=== PATIENT | male | born 1980 | race Caucasian/White ===

== ENCOUNTER 2020-11-28 20:21 | Emergency (ER) | payer SELFPAY ==
[2020-11-28 20:22] VITALS: BP 138/90; PULSE 65; RESP 28; TEMP 36.8; O2SAT 97; BMI 26.9
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
[2020-11-28 20:30] VITALS: BP 113/74; PULSE 50; RESP 21; O2SAT 100
[2020-11-28 20:38] LABS: Basophils # 0.1 K/mm3 (0-0.2); Basophils % 0.9 % (0.1-2.0); Eosinophils # 0.3 K/mm3 (0.0-0.4); Eosinophils % 2.6 % (0.1-12.0); Hematocrit 48.4 % (42.0-52.0); Hemoglobin 15.8 g/dL (14.1-18.0); Lymphocytes % 28.5 % (10-50); Mean Corpuscular HGB Conc 32.7 g/dL (31.8-35.4); Mean Corpuscular Hemoglobin 29.8 pg (27.0-31.2); Mean Corpuscular Volume 91.1 fl (80-94); Mean Platelet Volume 7.2 fl (7.4-10.4); Monocytes # 0.6 K/mm3 (0.1-1.0); Monocytes % 5.5 % (1.7-9.3); Neutrophils # 6.6 K/mm3 (1.8-7.8); Neutrophils % 62.5 % (37.0-80.0); Platelet Count 370 K/mm3 (142-424); Red Blood Count 5.31 M/mm3 (4.60-6.20); Red Cell Distribution Width 13.2 % (11.5-17.5); White Blood Count 10.5 K/mm3 (4.8-10.8)
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
[2020-11-28 20:45] VITALS: BP 146/86; PULSE 76; RESP 28; O2SAT 100
[2020-11-28 20:45] LABS: Chloride 103 mmol/L (98-107); Sodium 138 mmol/L (136-145)
[2020-11-28 20:46] LABS: Potassium 3.9 mmoL/L (3.5-5.1)
[2020-11-28 20:48] LABS: Alanine Aminotransferase 22 U/L (12-78); Albumin Level 4.8 g/dl (3.5-5.0); Albumin/Globulin Ratio 1.7 (1.1-1.8); Alkaline Phosphatase 90 U/L (38-126); Anion Gap 10.9 mEq/L (5-15); Aspartate Amino Transferase 38 U/L (17-59); Bilirubin,Total 0.8 mg/dl (0.2-1.3); Blood Urea Nitrogen 12 mg/dl (9-20); Carbon Dioxide 28 mmol/L (22.0-30.0); Creatinine Clearance Estimated 147 mL/min (50-200); Estimated Glomerular Filt Rate 93 ml/min (>60); GFR (African American) 113 ML/MIN (>60); Globulin 2.9 g/dL (1.3-3.2); Total Protein,Serum 7.7 g/dl (6.3-8.2)
[2020-11-28 20:49] LABS: Calcium 9.4 mg/dl (8.4-10.2); Glucose 112 mg/dl (74-100)
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
[2020-11-28 20:52] LABS: Activated Partial Thrombo Time 24.3 seconds (22.8-30.6)
[2020-11-28 21:00] VITALS: BP 174/116; PULSE 85; RESP 23; O2SAT 99
--- NOTE | 2020-11-28 21:01 | PC.NURSE ---
Pt A&Ox4 on arrival and helped from POV via staff. C collar applied on arrival to Trauma room 2. Pt undressed and inspected front and back. Doran inserted w/ clear yellow urine. 100% non-rebreather applied. MD Catrachito called for insertion of chest tube. 32fr chest tube to left chest wall and connected to plurevac. 18g IV in bilateral ac's, blood drawn and sent to lab. Pt given 2L NS and 50mcg fentanyl while in ED.
--- NOTE | 2020-11-28 21:03 | HMH.PROC ---
[facility] Procedure Note Procedure Note:: Procedure: Left thoracostomy tube (32 B[place]) Indication: Traumatic left pneumothorax Prep: Betadine Anesthesia: 1% lidocaine Description: Verbal consent was obtained. The procedure was considered an emergency and formal/written consent was not obtained. The patient was maintained in a supine position. His left chest was prepped and draped with Betadine. After infiltration local anesthetic an incision was made along the anterior axillary line (seventh interspace). The underlying tissue was tunneled in a cephalad direction up and over the rib margin. A 32 B[place]udian thoracostomy tube was secured at 17 cm with 0 silk suture. The tube was secured to the Pleur-evac. Dressings were applied. The patient tolerated the procedure with moderate discomfort. Estimated blood loss: 1 mL Complications: no immediate
[2020-11-28 21:12] LABS: Microscopic, Urine URINE MICROSCOPIC (MICROSCOPIC)
[2020-11-28 21:13] LABS: Appearance,Urine CLEAR (Clear); Bilirubin,Urine Negative (Negative); Blood, Urine TRACE-I (Negative); Color,Urine YELLOW (Yellow); Glucose,Urine (UA) Negative (Negative); Ketones,Urine Negative (Negative); Leukocyte Esterase,Urine Negative (Negative); Nitrate,Urine Negative (Negative); Protein,Urine TRACE (Negative); Urobilinogen,Urine 0.2 EU/dl (0.2)
[2020-11-28 21:15] VITALS: BP 159/104; PULSE 81; RESP 20; O2SAT 98
[2020-11-28 21:20] VITALS: BP 164/98; PULSE 82; RESP 22; TEMP 36.8; O2SAT 100
--- NOTE | 2020-11-28 21:20 | PC.NURSE ---
2120- Pt transferred to [facility] for air transport to . Pt stable on d/c.
[2020-11-28 21:23] LABS: Bacteria,Urine 2+ /lpf; Mucus,Urine 3+ /lpf
[2021-01-20 11:25] LABS: POC Glucose,Bedside 85 (70-110)
== END 2020-11-28 21:20 | disposition short-term general hospital (02) ==
PROVIDERS: Emergency Provider Emergency Medicine
DX: J93.9 Pneumothorax, unspecified (principal); S29.8XXA Other specified injuries of thorax, initial encounter; S39.91XA Unspecified injury of abdomen, initial encounter; V28.0XXA Motorcycle driver injured in noncollision transport accident in nontraffic accident, initial encounter; Y92.488 Other paved roadways as the place of occurrence of the external cause
CPT/HCPCS: 32551; 71045; 72170; 80053; 81001; 82962; 85025; 85730; 87086; 96365; 96375; 99284

== ENCOUNTER 2021-08-26 08:17 | Emergency (ER) | payer OTHER, SELFPAY ==
--- NOTE | 2021-08-26 08:17 | ECG_ITS ---
APPROVED REPORT Exam: Resting ECG HR:85 bpm ECG Measurements Heart Rate 85 AXES VA 140 P 42 QRSd 98 QRS 96 QT 368 T 70 QTc 437 Conclusion Normal sinus rhythm Rightward axis Borderline ECG Electronically signed by : Davin Galo MD 08/26/2021 19:54:26
[2021-08-26 08:19] VITALS: BMI 29.8
--- NOTE | 2021-08-26 08:19 | HMH.EDGENADL ---
ED Disposition Clinical Impression: Pancreatitis Qualifiers: Chronicity: acute Pancreatitis type: unspecified pancreatitis type Acute pancreatitis complication: no infection or necrosis Qualified Code(s): K85.90 - Acute pancreatitis without necrosis or infection, unspecified Disposition: Home, Self-Care Condition on Discharge: Good Instructions: DI for Pancreatitis Additional Instructions: Clear liquids only, no solid food, for 24 hours. Return to the emergency department if worsening symptoms. Follow-up with your primary care provider, call to make appointment. Your gallbladder was contracted/thickened on CAT scan and ultrasound in the emergency department. Follow-up with your primary care doctor for further evaluation of your gallbladder. Referrals: Provider,Referral, [Primary Care Provider] - - Critical Care Critical Care Time: No Attestation: On , the high probability of a clinically significant, sudden or life threatening deterioration of the following system(s) required my full and direct attention, intervention and personal management. The time I documented below is in addition to time spent performing reported procedures but includes the following listed in this critical care notation. Medical Decision Making - Vinay Inquiry Pt receiving controlled substance: No Vital Signs: 08/26/21 08:24 08/26/21 09:00 08/26/21 09:30 Temperature 98.5 F Temperature Source Oral Pulse Rate 83 78 Pulse Rate [Left Radial] 83 Respiratory Rate 14 12 18 Blood Pressure 143/91 H 137/83 Blood Pressure [Right Arm] 141/98 H Blood Pressure Mean [Right Arm] 112 Blood Pressure Source [Right Arm] Automatic Cuff Blood Pressure Position [Right Arm] Sitting 02 Sat by Pulse Oximetry 97 96 96 Oxygen Delivery Method Room Air Room Air Room Air 08/26/21 10:30 08/26/21 11:06 Temperature Temperature Source Pulse Rate 75 73 Pulse Rate [Left Radial] Respiratory Rate 16 14 Blood Pressure 174/83 H 159/94 H Blood Pressure [Right Arm] Blood Pressure Mean [Right Arm] Blood Pressure Source [Right Arm] Blood Pressure Position [Right Arm] 02 Sat by Pulse Oximetry 95 97 Oxygen Delivery Method - Lab Data Lab Results 08/26/21 08:21: WBC 9.2, RBC 5.12, Hgb 15.7, Hct 49.1, MCV 96.0 H, MCH 30.7, MCHC 32.0, RDW 13.9, Plt Count 290, MPV 7.7, Neut % (Auto) 67.7, Lymph % (Auto) 20.6, [place] % (Auto) 6.5, Eos % (Auto) 3.4, Baso % (Auto) 1.8, Neut # (Auto) 6.3, Lymph # (Auto) 1.9, [place] # (Auto) 0.6, Eos # (Auto) 0.3, Baso # (Auto) 0.2 08/26/21 08:21: Troponin I < 0.01 08/26/21 08:21: Sodium 139, Potassium 4.4, Chloride 109 H, Carbon Dioxide 25, Anion Gap 9.4, BUN 17, Creatinine 0.80, Estimated Creat Clear 172, Estimated GFR 107, Est GFR ( Amer) 129, Glucose 103 H, Calcium 9.0 08/26/21 08:21: Lipase 597 H 08/26/21 11:16: Troponin I < 0.01 Result diagrams: 08/26/21 08:21 08/26/21 08:21 Orders (Tests/Meds): ED MEDICATIONS Generic Name Dose Route Start Last Admin Trade Name Frechucky PRN Reason Stop Dose Admin Sodium Chloride 8 ml 08/26/21 08:27 08/26/21 08:29 Sodium Chloride 0.9% 10ml Vial IV 09/25/21 08:26 8 ml NEEDED PRN Administration dilute pepcid Discontinued Medications Generic Name Dose Route Start Last Admin Trade Name Freq PRN Reason Stop Dose Admin Belladonna Alkaloids 60 ml 08/26/21 08:23 08/26/21 08:28 Gi Cocktail 60ml Udc PO 08/26/21 08:24 60 ml ONCE ONE Administration Famotidine 20 mg 08/26/21 08:27 08/26/21 08:28 Famotidine 20mg/2ml Vial IV 08/26/21 08:28 20 mg ONCE ONE Administration Iopamidol 75 ml 08/26/21 09:26 08/26/21 09:26 Iopamidol-370 (76%);100ml Bottle IV 08/26/21 09:27 75 ml ONCE ONE Administration Metoclopramide HCl 10 mg 08/26/21 08:27 08/26/21 08:28 Metoclopramide Hcl 10mg/2ml Vial IVP 08/26/21 08:28 10 mg ONCE ONE Administration Sodium Chloride 10 ml 08/26/21 09:26 08/26/21 09:26 Sodium Chl
--- NOTE | 2021-08-26 08:21 | XR_ITS ---
FINAL REPORT CLINICAL HISTORY: chest pain COMPARISON: November 28, 2020 FINDINGS: Two views of the chest were obtained. The heart size and pulmonary vascularity are within normal limits. The mediastinum is normal. No acute pulmonary abnormality is identified. There is no pneumothorax. The bony thorax is intact. IMPRESSION: No active cardiopulmonary disease. Reviewed, Interpreted and Dictated by Eddi Jaffe III, MD Transcribed by Clarisa Sutton Authenticated by Eddi Jaffe III, MD on 08/26/2021 09:18:58 AM [facility]
--- NOTE | 2021-08-26 08:22 | PC.NURSE ---
pt states he is allergic to aspirin
[2021-08-26 08:24] VITALS: BP 141/98; PULSE 83; RESP 14; TEMP 36.9; O2SAT 97; BMI 29.8
[2021-08-26 08:33] LABS: Basophils # 0.2 K/mm3 (0-0.2); Basophils % 1.8 % (0.1-2.0); Eosinophils # 0.3 K/mm3 (0.0-0.4); Eosinophils % 3.4 % (0.1-12.0); Hematocrit 49.1 % (42.0-52.0); Hemoglobin 15.7 g/dL (14.1-18.0); Lymphocytes # 1.9 K/mm3 (0.7-4.5); Lymphocytes % 20.6 % (10-50); Mean Corpuscular Hemoglobin 30.7 pg (27.0-31.2); Mean Platelet Volume 7.7 fl (7.4-10.4); Monocytes # 0.6 K/mm3 (0.1-1.0); Monocytes % 6.5 % (1.7-9.3); Neutrophils # 6.3 K/mm3 (1.8-7.8); Neutrophils % 67.7 % (37.0-80.0); Platelet Count 290 K/mm3 (142-424); Red Blood Count 5.12 M/mm3 (4.60-6.20); Red Cell Distribution Width 13.9 % (11.5-17.5); White Blood Count 9.2 K/mm3 (4.8-10.8)
[2021-08-26 08:40] LABS: Anion Gap 9.4 mEq/L (5-15); Blood Urea Nitrogen 17 mg/dl (9-20); Carbon Dioxide 25 mmol/L (22.0-30.0); Chloride 109 mmol/L (98-107); Creatinine Clearance Estimated 172 mL/min (50-200); Estimated Glomerular Filt Rate 107 ml/min (>60); GFR (African American) 129 ML/MIN (>60); Glucose 103 mg/dl (74-100); Potassium 4.4 mmoL/L (3.5-5.1); Sodium 139 mmol/L (136-145)
[2021-08-26 08:50] LABS: Lipase 597 U/L (23-300)
[2021-08-26 08:54] LABS: Troponin I < 0.01 ng/ml (0.00-0.034)
[2021-08-26 09:00] VITALS: BP 143/91; PULSE 83; RESP 12; O2SAT 96
--- NOTE | 2021-08-26 09:03 | US_ITS ---
FINAL REPORT CLINICAL HISTORY: pancreatitis; abd pain FINDINGS: RIGHT UPPER QUADRANT ULTRASOUND: Ultrasound images of right upper quadrant were obtained. Limited images of the pancreas are obscured by bowel gas. The liver appears normal. The common duct measures 3 mm. There is gallbladder wall thickening measuring 3 mm. No stones are identified. The right kidney measures 1.4 cm. IMPRESSION: Nonspecific gallbladder wall thickening. If indicated, nuclear medicine hepatobiliary scan may be helpful. Reviewed, Interpreted and Dictated by Eddi Jaffe III, MD Transcribed by Mary Adler Authenticated by Eddi Jaffe III, MD on 08/26/2021 11:29:24 AM [facility]
--- NOTE | 2021-08-26 09:03 | CT_ITS ---
FINAL REPORT CLINICAL HISTORY: pancreatitis FINDINGS: CT OF THE ABDOMEN AND PELVIS WITH CONTRAST Axial CT images of the abdomen and pelvis were obtained after the administration of iv contrast. Coronal reformatted images were also obtained and reviewed.This study was performed with techniques to keep radiation doses as low as reasonably achievable (ALARA). Individualized dose reduction techniques using automated exposure control or adjustment of mA and/or kV according to the patient's size were employed. Abdomen: There is an anterior left lower lobe nodule measuring 8 mm on image 12. The heart is normal in size. There is mild nonspecific gallbladder wall thickening. The liver has an unremarkable appearance, without evidence of mass or biliary ductal dilatation. The spleen is unremarkable. No adrenal mass is present. The pancreas has an unremarkable appearance. The kidneys are normal, without evidence of mass or hydronephrosis. The aorta is normal in caliber. There is no free fluid or adenopathy. No mass or abnormal fluid collection is seen. Pelvis: The appendix is normal. The urinary bladder is unremarkable. No inflammatory process is seen. There is no evidence of mass or adenopathy. There is no evidence of bowel obstruction. IMPRESSION: Mild nonspecific gallbladder wall thickening. No evidence of pancreatic or peripancreatic inflammation to suggest pancreatitis. Reviewed, Interpreted and Dictated by Eddi Jaffe III, MD Transcribed by Clarisa Sutton Authenticated by Eddi Jaffe III, MD on 08/26/2021 11:29:21 AM [facility]
--- NOTE | 2021-08-26 09:14 | PC.NURSE ---
called rad for u/s order
[2021-08-26 09:30] VITALS: BP 137/83; PULSE 78; RESP 18; O2SAT 96
[2021-08-26 10:30] VITALS: BP 174/83; PULSE 75; RESP 16; O2SAT 95
[2021-08-26 11:06] VITALS: BP 159/94; PULSE 73; RESP 14; O2SAT 97
--- NOTE | 2021-08-26 11:09 | PC.NURSE ---
called xray to check status of ct report. states they will fax us the preliminary but does not know when official report will be in
[2021-08-26 12:02] LABS: Troponin I < 0.01 ng/ml (0.00-0.034)
[2021-08-26 12:23] VITALS: BP 135/74; PULSE 78; RESP 16; TEMP 36.6; O2SAT 99
== END 2021-08-26 12:25 | disposition home or self-care (01) ==
PROVIDERS: Emergency Provider Emergency Medicine
DX: K85.90 Acute pancreatitis without necrosis or infection, unspecified (principal); F17.210 Nicotine dependence, cigarettes, uncomplicated; Z88.2 Allergy status to sulfonamides
CPT/HCPCS: 71046; 74177; 76705; 80048; 83690; 84484; 85025; 93005; 96365; 96375; 99283; Q9967